=== PATIENT | male | born 1985 | race Caucasian/White ===

== ENCOUNTER 2021-05-02 12:10 | Emergency (ER) | payer OTHER | END 2021-05-02 13:45 | disposition home or self-care (01) | LOC: ER1 12:10 | DX: T40.1X1A Poisoning by heroin, accidental (unintentional), initial encounter (principal) | CPT/HCPCS: 93005; 99285 ==

== ENCOUNTER 2021-05-02 14:47 | Emergency (ER) | payer OTHER ==
[2021-05-02 15:17] LABS: RED BLOOD COUNT 4.8 M/UL (4.20-5.50); WHITE BLOOD COUNT 10.9 K/UL (4.5-11.0)
[2021-05-02 15:34] LABS: BUN/CREATININE RATIO 15 (0-10)
== END 2021-05-02 17:36 | disposition home or self-care (01) ==
LOC: ER1 14:47
PROVIDERS: Preventive Medicine Occupational Medicine
DX: T40.1X1A Poisoning by heroin, accidental (unintentional), initial encounter (principal)
CPT/HCPCS: 36600; 71045; 80053; 80307; 81001; 82140; 82550; 82553; 82803; 83605; 83874; 84484; 85025; 85652; 86140; 99285; G0480; J2405